=== PATIENT | female | born 1995 | race Caucasian/White ===

== ENCOUNTER 2017-01-10 07:39 | Emergency (ER) | payer BC ==
[~2017-01-10] VITALS: Ht 165.1 cm; Wt 82.2 kg
[2017-01-10 07:41] VITALS: TEMP 36.6; Ht 165.1 cm; Wt 82.2 kg
[2017-01-10] MEDS ORDERED: IBUP-1050 PO (07:51)
[2017-01-10] MEDS ORDERED: DIPH25CA65 PO (07:51)
[2017-01-10] MEDS ORDERED: DEXAMETHASONE 2 MG/20 ML UDP PO STA (08:00)
[2017-01-10] MEDS ORDERED: FAMOTIDINE 20 MG TAB PO ONE (08:00)
--- NOTE | 2017-01-10 08:07 | EMERGENCY ROOM VISIT NOTE ---
History Report prepared by Lisa: Dania Child Under the Supervision of: Dr. Gladys Narvaez D.O. First contact with patient: 07:49 Chief Complaint: ALLERGIC REACTION Stated Complaint: FACIAL SWELLING, HIVES AFTER BEE STING History of Present Illness The patient is a 21 year old female who presents to the Emergency Room with complaints of an episode of a bee sting occurring 2 days MED SURG NURSE. The patient states that she was stung on her forehead between her eyes at 6pm. She did not have any swelling or reaction at that time. Yesterday morning she woke up and her right eye was slightly swollen. She states that her reaction worsened throughout the day. Yesterday evening she had swelling to her eyes bilaterally. This morning she woke up and the area around her eyes was puffier and red. She thinks that she is getting hives on her face. The patient states that it is very itchy. She took 50 mg of Benadryl twice yesterday and has been icing her face without any improvement of her symptoms. She states that her eyes are tearing more than usual but she denies any changes in vision. She denies any swelling or hives anywhere else on her body. The patient states that she has not had a bee sting since she was a child, but she does not recall any previous allergic reactions to bee stings. She notes that she was started to get sick before this incident happened and she lost her voice yesterday. She is unsure if this is related to the bee sting or just feeling generally unwell. She denies any wheezing, cough, chest pain, and shortness of breath. She denies any other allergies. Source of History: patient Onset: 2 days MED SURG NURSE Position: head Quality: other (itchy) Timing: worsening Associated Symptoms: + rash (redness/hives to face), No cough, No chest pain , No SOB Note: PT denies wheezing Review of Systems See HPI for pertinent positives & negatives. A total of 10 systems reviewed and were otherwise negative. Past Medical & Surgical Surgical Problems: (1) H/O wisdom tooth extraction Family History Diabetes mellitus Social History Smoking Status: Never Smoker Smokeless Tobacco Use: No Alcohol Use: occasionally Drug Use: none Marital Status: single Housing Status: lives with roommate Occupation Status: [employer] student Current/Historical Medications Scheduled Epinephrine (Epipen), 0.3 MG IM UD Ibuprofen (Advil), 600 MG PO DIRECTED Scheduled PRN Diphenhydramine Hcl (Benadryl Allergy), 25 MG PO DIRECTED PRN for ALLERGIC REACTION Allergies Coded Allergies: No Known Allergies (Unverified , 01/10/17) Physical Exam Vital Signs Date Time Temp Pulse Resp B/P (MAP) Pulse Ox O2 Delivery O2 Flow Rate FiO2 01/10/17 09:05 69 18 118/71 98 01/10/17 08:00 Room Air 01/10/17 08:00 76 20 143/87 95 Room Air 01/10/17 07:41 36.6 82 20 135/83 94 Room Air Physical Exam GENERAL: alert, well appearing, well nourished, no distress, non-toxic HEAD: Mild swelling along the nasal bridge and bilateral periorbital region. EYE EXAM: normal conjunctiva, PERRL and EOM's grossly intact. OROPHARYNX: no exudate, no erythema, lips, buccal mucosa, and tongue normal and mucous membranes are moist, no swelling in the oropharynx NECK: supple, no nuchal rigidity, no adenopathy, non-tender, no stridor LUNGS: Clear to auscultation. Normal chest wall mechanics, no wheezes/rhonchi/ rales HEART: no murmurs, S1 normal and S2 normal ABDOMEN: abdomen soft, non-tender, normo-active bowel sounds, no masses, no rebound or guarding. BACK: Back is symmetrical on inspection and there is no deformity, no midline tenderness, no CVA tenderness. SKIN: no rashes and no bruising, no urticaria or erythema UPPER EXTREMITIES: upper extremities are grossly normal. LOWER EXTREMITIES: No pitting edema. NEURO EXAM: Normal sensorium, cranial nerves II-XII grossly intact, normal speech, no gross weakness of arms, no gross weakness of legs. Medical Decision & Procedures Medications Administered Medications (Trade) Dose Ordered Sig/Karmen Route Start Time Stop Time Status Last Admin Dose Admin Diphenhydramine HCl (Benadryl Cap) 50 mg NOW ONCE PO 01/10/17 08:00 01/10/17 08:01 DC 01/10/17 08:16 50 MG Famotidine (Pepcid Tab) 40 mg NOW ONCE PO 01/10/17 08:00 01/10/17 08:01 DC 01/10/17 08:16 40 MG Dexamethasone (Decadron Tab) 10 mg 0820 PO 01/10/17 08:20 01/10/17 09:00 DC 01/10/17 08:33 10 MG ED Course 0750: The patient was evaluated in room A12B. A complete history and physical exam was performed. 0800: Pepcid Tab 40 mg PO, Benadryl 50 mg PO 0820: Decadron 10 mg PO 0854: I reassessed the patient at this time. She is feeling better and resting comfortably. Her swelling and redness has mildly improved. I discussed the results and treatment plan with the patient. I discussed which symptoms to watch and return for. I answered all pertaining questions that she had. She expressed understanding and verbalized agreement. The patient will be discharged home. Medical Decision Differential diagnosis: Etiologies such as allergic reaction, anaphylaxis, urticaria, Fountain-Bartolo syndrome, toxic epidermal necrolysis, erythema multiforme, cellulitis, as well as others were entertained. Patient well-appearing here, no evidence for severe allergic reaction or anaphylaxis. Discussed with patient more concerning symptoms, symptoms watch return for, use of Benadryl the next 24-48 hours, use of an EpiPen, she verbalized understanding was agreeable with plan. [place] Drug Monitoring Program Search Results: no issues identified Medication Reconcilliation Current Medication List: was personally reviewed by me Blood Pressure Screening Patient's blood pressure: Normal blood pressure Impression Primary Impression: Allergic reaction Scribe Attestation The scribe's documentation has been prepared under my direction and personally reviewed by me in its entirety. I confirm that the note above accurately reflects all work, treatment, procedures, and medical decision making performed by me. Departure Information Dispostion Home / Self-Care Prescriptions Epinephrine (EPIPEN) 0.3 Mg/0.3 Ml Inj 0.3 MG IM UD for ALLERGIC REACTION, #1 UNIT Prov: Gladys Narvaez, 01/10/17 Referrals No Doctor, Assigned (PCP) Forms HOME CARE DOCUMENTATION FORM, IMPORTANT VISIT INFORMATION Patient Instructions My [facility] Additional Instructions Please continue taking the Benadryl every 6-8 hours as needed. Please carry EpiPen with you at all times. You may continue using ice intermittently to the affected area. If you have any worsening swelling, worsening itching, develop a diffuse rash, trouble breathing, swelling to the tongue, difficulty swallowing , or you have any other new concerns, please return the emergency room. Problem Qualifiers Primary Impression: Allergic reaction Encounter type: initial encounter Qualified Codes: T78.40XA - Allergy, unspecified, initial encounter
[2017-01-10] MEDS ORDERED: DEXAMETHASONE 4 MG TAB PO SCH (08:20)
[2017-01-10] MEDS ORDERED: EPP3/2 IM (08:59)
[2017-01-10 09:05] VITALS: BP 118/71; PULSE 69; O2SAT 98
== END 2017-01-10 09:05 | disposition home or self-care (01) ==
LOC: C.EDB 07:41 → C.EDA 09:05
DX: T63.441A Toxic effect of venom of bees, accidental (unintentional), initial encounter (principal); Z83.3 Family history of diabetes mellitus